=== PATIENT | female | born 1980 | race Caucasian/White ===

== ENCOUNTER 2016-05-14 21:34 | Emergency (ER) | payer BC, MEDICAID ==
[~2016-05-14] VITALS: Ht 165.1 cm; Wt 94.1 kg
[~2016-05-14 21:34] MED LIST: PROM25TA5 PO; ZOFR4TAB3 PO
[2016-05-14 21:37] VITALS: BP 160/85; PULSE 80; RESP 16; TEMP 98.3; O2SAT 96
[2016-05-14] MEDS ORDERED: SODIUM CHLOR 0.9% 1000 ML INJ 1,000 ML IV ONE (22:15)
[2016-05-14 22:20] VITALS: BP 161/108; PULSE 74; RESP 16; O2SAT 96
[2016-05-14] MEDS ORDERED: IBUP800T23 PO (22:27)
[2016-05-14 22:28] VITALS: O2SAT 95
--- NOTE | 2016-05-14 22:28 | PD ---
HPI Chief Complaint: Numbness/Tingling Time Seen by Provider: 22:08 Travel History International Travel<30 days: No Contact w/Intl Traveler<30days: No Traveled to known affect area: No History of Present Illness HPI The patient is 35 year old female who presents to the [facility] emergency department with a history of reportedly being day #9 status post term vaginal delivery. The patient reports that she is both breast and bottle feeding. She reports that was an uncomplicated delivery. She reports that she was discharged after a day. She reports that after discharge she developed congestion, cough, rhinorrhea, right-sided ear pressure. She reports that the congestion has improved, however 2 days ago she began to have a right-sided facial droop with dribbling out of the right side of her mouth when she wouldn' t drink fluids. She reports that she also feels like she has some weakness with closing her right eye. The patient reports having pain behind her right ear that radiates into the right side of her neck. She denies being on any medications . She reports that she did have gestational diabetes. She reports that her lochia is decreasing. She denies having any upper or lower extremity weakness. She denies having any numbness or tingling to her extremities. Her TREE WORKER is Dr. Rankin. The patient has no rashes. The patient denies having any fevers, chest pain, shortness of breath, abdominal pain, vomiting, diarrhea, or urinary symptoms. [facility] Past Medical History Narrative Medical The patient's past medical history is significant for a thyroid disorder status post partial thyroidectomy, however she has not required any subsequent thyroid medication supplementation, history of gestational diabetes. Diabetes: Yes (WHILE ) Patient Takes Glucophage: No Genitourinary: Yes (ovarian cyst) Thyroid Disease: Yes ?: Not LMP: GAVE 9 DAYS AGO Past Surgical History Narrative Surgical The patient's past surgical history is significant for cholecystectomy, appendectomy, partial thyroidectomy. Appendectomy: Yes Cholecystectomy: Yes Gynecologic Surgery: Yes Other Surgery: Yes Social History Alcohol Use: No Tobacco Use: No Substance Use: No Allergies-Medications (Allergen,Severity, Reaction): Coded Allergies: Hydrocodone (Verified Allergy, Severe, 05/14/16) Reported Meds & Prescriptions Reported Meds & Active Scripts Active Valacyclovir (Valacyclovir HCl) 1 Gm Tab 1,000 Mg PO TID Prednisone 20 Mg Tab 20 Mg PO TID 6 Days Reported Ibuprofen 800 Mg Tab 800 Mg PO BID PRN Review of Systems Except as stated in HPI: all other systems reviewed are Neg General / Constitutional: No: Fever Eyes: No: Visual changes HENT: No: Headaches Cardiovascular: No: Chest Pain or Discomfort Respiratory: No: Shortness of Breath Gastrointestinal: No: Abdominal Pain Genitourinary: No: Dysuria Musculoskeletal: No: Pain Skin: No Rash Neurologic: Positive: Focal Abnormalities, Sensory Disturbance, No: Weakness, Change in Mentation, Slurred Speech, Paresthesia Psychiatric: No: Depression Endocrine: No: Polydipsia Hematologic/Lymphatic: No: Easy Bruising Physical Exam Narrative General: The patient is a well-developed well-nourished female in no acute distress. Head and Neck exam: Head is normocephalic atraumatic. Eyes: Pupils are equal round and reactive to light. Nose: Midline septum with pink mucous membranes Mouth: Dentition unremarkable. Moist mucus membranes. Posterior oropharynx is not erythematous. No tonsillar hypertrophy. Uvula midline. Airway patent. Neck: No palpable lymphadenopathy. No nuchal rigidity. No thyromegaly. Cardiovascular: Regular rate and rhythm without murmurs, gallops, or rubs. No pulse deficit to the extremities. Lungs: Clear to auscultation bilaterally. No wheezes, rhonchi, or rales. Abdomen: Soft, without tenderness to palpation in all 4 quadrants of the abdomen. No guarding, rebound, or rigidity. Negative [place] sign. Extremities: No clubbing, cyanosis, or edema. 2+ pulses in all 4 extremities. Back: No spinous process tenderness to palpation. No costovertebral angle tenderness to palpation. Neurologic Exam: Cranial nerves 2-12 were intact on exam. Strength is 5/5 in all 4 extremities. No sensory deficits noted. Skin Exam: No rash noted. Intact skin that is warm and dry. Data Data Last Documented VS Vital Signs Date Time Temp Pulse Resp B/P Pulse Ox O2 Delivery O2 Flow Rate FiO2 05/14/16 22:28 95 Room Air 05/14/16 22:20 74 16 161/108 05/14/16 21:37 98.3 Orders Electrocardiogram (05/14/16 22:09) Complete Blood Count With Diff (05/14/16 22:09) Comprehensive Metabolic Panel (05/14/16 22:09) Prothrombin Time / Inr (Pt) (05/14/16 22:09) Act Partial Throm Time (Ptt) (05/14/16 22:09) Urinalysis - C+S If Indicated (05/14/16 22:09) Magnesium (Mg) (05/14/16 22:09) Thyroid Stimulating Hormone (05/14/16 22:09) Ct Brain W/O Iv Contrast(Rout) (05/14/16 22:09) Iv Access Insert/Monitor (05/14/16 22:09) Ecg Monitoring (05/14/16 22:09) Oximetry (05/14/16 22:09) Ed Urine Pregnancytest Poc (05/14/16 22:09) Cta Neck W Iv Contrast W 3d (05/14/16 ) Sodium Chlor 0.9% 1000 Ml Inj (Ns 1000 M (05/14/16 22:15) Methylprednisolone So Succ Inj (Solumedr (05/14/16 22:45) Iohexol 350 Inj (Omnipaque 350 Inj) (05/14/16 23:47) Labs Laboratory Tests Test 05/14/16 22:25 White Blood Count 6.4 TH/MM3 Red Blood Count 5.40 MIL/MM3 Hemoglobin 15.2 GM/DL Hematocrit 44.1 % Mean Corpuscular Volume 81.6 FL Mean Corpuscular Hemoglobin 28.1 PG Mean Corpuscular Hemoglobin 34.4 % Concent Red Cell Distribution Width 15.9 % Platelet Count 202 TH/MM3 Mean Platelet Volume 8.6 FL Neutrophils (%) (Auto) 57.7 % Lymphocytes (%) (Auto) 33.0 % Monocytes (%) (Auto) 6.4 % Eosinophils (%) (Auto) 1.8 % Basophils (%) (Auto) 1.1 % Neutrophils # (Auto) 3.7 TH/MM3 Lymphocytes # (Auto) 2.1 TH/MM3 Monocytes # (Auto) 0.4 TH/MM3 Eosinophils # (Auto) 0.1 TH/MM3 Basophils # (Auto) 0.1 TH/MM3 CBC Comment DIFF FINAL Differential Comment Prothrombin Time 10.8 SEC Prothromb Time International 1.0 RATIO Ratio Activated Partial 25.1 SEC Thromboplast Time Sodium Level 141 MEQ/L Potassium Level 4.1 MEQ/L Chloride Level 105 MEQ/L Carbon Dioxide Level 28.9 MEQ/L Anion Gap 7 MEQ/L Blood Urea Nitrogen 16 MG/DL Creatinine 0.71 MG/DL Estimat Glomerular Filtration 95 ML/MIN Rate Random Glucose 85 MG/DL Calcium Level 9.5 MG/DL Magnesium Level 1.9 MG/DL Total Bilirubin 0.3 MG/DL Aspartate Amino Transf 25 U/L (AST/SGOT) Alanine Aminotransferase 43 U/L (ALT/SGPT) Alkaline Phosphatase 84 U/L Total Protein 7.3 GM/DL Albumin 3.5 GM/DL Thyroid Stimulating Hormone 1.180 uIU/ML [address] [place] [address] Medical Decision Making Medical Screen Exam Complete: Yes Emergency Medical Condition: Yes Medical Record Reviewed: Yes Differential Diagnosis Intracranial abnormality, versus Chase's palsy Narrative Course During the course of the patients emergency department visit, the patients history, examination, and differential diagnosis were reviewed with the patient. The patient had IV access obtained and blood work sent for analysis. The patient was on a monitor technician with oximetry and blood pressure monitoring. A CT scan of the head, CTA of the neck was ordered. The patient was provided 90 mg of Solu-Medrol IV. The patient was also given Valtrex 1 g by mouth 1, as I suspect that the patient's symptoms are related to a Chase's palsy. The patients laboratory studies were reviewed and remarkable for a CBC that is unremarkable. CMP is unremarkable. TSH 1.18, PT PTT unremarkable. Radiology studies were reviewed and remarkable for a CT scan of the brain that was negative. CTA of the neck shows normal carotid arteries, no other acute abnormality. The patient is noted to have enlarged right thyroid gland containing multiple nodules. Nonemergent thyroid ultrasound is recommended. She was instructed to follow-up with a primary care physician regarding this. The patient's symptoms are most consistent with a Chase's palsy. According to up -to-date it is recommended continuation of prednisone for 7 days. The patient was given her first dose of the steroid today, she will continue prednisone for the next 6 days. The patient will also be continued on Valtrex. The patient was instructed to follow-up with a primary care physician. The patient was given the name of the outpatient referral doctor, Dr. Guaman for follow up. The patient is resting comfortably and feels better, is alert and in no distress. The patients results and examination findings were discussed with the patient. The repeat examination is unremarkable and benign. The history, exam, diagnostic testing, and current condition do not suggest any significant pathology to warrant further testing, continued ED treatment, admission, or surgical evaluation at this point. The vital signs have been stable. The patient does not have uncontrollable pain, intractable vomiting, or other significant symptoms. The patient's condition is stable and appropriate for discharge. The patient will pursue further outpatient evaluation with a primary care physician or other designated or consulting physician as indicated in the discharge instructions. The patient expressed understanding and was agreeable with this plan. Diagnosis Primary Impression: Chase's palsy Additional Impression: Thyroid nodule Referrals: Goldie Guaman MD 2 days Patient Instructions: Chase Palsy (ED), General Instructions Additional Instructions: Incidentally were also noted to have multiple thyroid nodules. It is recommended that he have a follow-up thyroid sonogram for further evaluation with a primary care physician. Med/Other Pt SpecificInfo: Prescription(s) given Scripts Valacyclovir 1 Gm Tab1,000 Mg PO TID #20 TAB Ref 0 Prov:Anum Real MD 05/15/16 Prednisone 20 Mg Tab20 Mg PO TID 6 Days Ref 0 Prov:Anum Real MD 05/15/16 Disposition: 01 DISCHARGE HOME Condition: Stable Anum Real MD May 14, 2016 22:28
[2016-05-14 22:41] LABS: AUTOMATED NEUTROPHIL # 3.7 TH/MM3 (1.8-7.7); BASOPHIL # 0.1 TH/MM3 (0-0.2); BASOPHIL % 1.1 % (0.0-2.0); EOSINOPHIL # 0.1 TH/MM3 (0-0.4); EOSINOPHIL % 1.8 % (0.0-4.0); HEMATOCRIT 44.1 % (35.0-46.0); HEMO FLAGS DIFF FINAL; LYMPHOCYTE # 2.1 TH/MM3 (1.0-4.8); MEAN CELL VOLUME 81.6 FL (80.0-100.0); MEAN CORPUSCULAR HEMOGLOBIN 28.1 PG (27.0-34.0); MEAN CORPUSCULAR HGB CONC 34.4 % (32.0-36.0); MONO % 6.4 % (0.0-8.0); NEUT % 57.7 % (16.0-70.0); PLATELET COUNT 202 TH/MM3 (150-450); RED CELL DISTRIBUTION WIDTH 15.9 % (11.6-17.2); WHITE BLOOD COUNT 6.4 TH/MM3 (4.0-11.0)
[2016-05-14] MEDS ORDERED: methylPREDNISolone SOD SUCC 40 MG/1 ML VIAL IV PUSH ONE (22:45)
[2016-05-14 22:49] LABS: APTT (PATIENT) 25.1 SEC (24.3-30.1); PROTHROMBIN TIME - PATIENT 10.8 SEC (9.8-11.6)
[2016-05-14 23:10] LABS: ALKALINE PHOSPHATASE 84 U/L (45-117); ALT (GPT) 43 U/L (10-53); ANION GAP 7 MEQ/L (5-15); AST (GOT) 25 U/L (15-37); BICARBONATE 28.9 MEQ/L (21.0-32.0); BLOOD UREA NITROGEN 16 MG/DL (7-18); CHLORIDE 105 MEQ/L (98-107); GLOMERULAR FILTRATION RATE 95 ML/MIN (>89); MAGNESIUM 1.9 MG/DL (1.5-2.5); POTASSIUM 4.1 MEQ/L (3.5-5.1); SODIUM (NA) 141 MEQ/L (136-145); TOTAL BILIRUBIN ADULT 0.3 MG/DL (0.2-1.0)
[2016-05-14] MEDS ORDERED: IOHEXOL 350 MG/ML 10 ML VIAL (for RAD DIAG) IV ONE (23:47)
--- NOTE | 2016-05-15 00:13 | RADRPT ---
EXAM DATE/TIME: 05/14/2016 23:44 [facility] COMPARISON: No previous studies available for comparison. INDICATIONS : Right side head and neck pain for two days, 9 days. RADIATION DOSE: 42.32 CTDIvol (mGy) MEDICAL HISTORY : None SURGICAL HISTORY : Cholecystectomy. Appendectomy. ENCOUNTER: Initial ACUITY: 2 days PAIN SCALE: 6/10 LOCATION: Right cranial TECHNIQUE: Multiple contiguous axial images were obtained of the head. Using automated exposure control and adj ustment of the mA and/or kV according to patient size, radiation dose was kept as low as reasonably a chievable to obtain optimal diagnostic quality images. FINDINGS: CEREBRUM: The ventricles are normal for age. No evidence of midline shift, mass lesion, hemorrhage or acute in farction. No extra-axial fluid collections are seen. POSTERIOR FOSSA: The cerebellum and brainstem are intact. The 4th ventricle is midline. The cerebellopontine angle i s unremarkable. EXTRACRANIAL: The visualized portion of the orbits is intact. SKULL: The calvaria is intact. No evidence of skull fracture. CONCLUSION: Normal examination. Kris Manuel MD on May 15, 2016 at 0:10 Board Certified Radiologist. This report was verified electronically.
[2016-05-15] MEDS ORDERED: VALA1TAB PO (00:29)
[2016-05-15] MEDS ORDERED: PRED20 PO (00:29)
[2016-05-15] MEDS ORDERED: valACYclovir HCL 500 MG TAB PO ONE (00:30)
--- NOTE | 2016-05-15 00:33 | RADRPT ---
EXAM DATE/TIME: 05/14/2016 23:44 [facility] COMPARISON: No previous studies available for comparison. INDICATIONS : Right sided head and neck pain for two days, 9 days. IV CONTRAST: 80 cc Omnipaque 350 (iohexol) IV RADIATION DOSE: 27.95 CTDIvol (mGy) MEDICAL HISTORY : None SURGICAL HISTORY : Cholecystectomy. Appendectomy. ENCOUNTER: Initial ACUITY: 2 days PAIN SCALE: 6/10 LOCATION: Right neck TECHNIQUE: Volumetric scanning was performed using a multirow detector CT scanner. The data was post processed with a variety of visualization algorithms including full-volume maximum intensity projection, multip lanar sliding thin-slab reformation, curved-planar reformation, and surface-rendering techniques. Us ing automated exposure control and adjustment of the mA and/or kV according to patient size, radiatio n dose was kept as low as reasonably achievable to obtain optimal diagnostic quality images. FINDINGS: AORTIC ARCH: There is a three-vessel origin of the great vessels from the aorta. No evidence of ostial narrowing. RIGHT CAROTID: The common carotid artery is intact. The carotid bulb has a normal configuration without ulceration o r narrowing. The internal carotid artery lumen is smooth without stenosis. The external carotid bella ry is intact. LEFT CAROTID: The common carotid artery is intact. The carotid bulb has a normal configuration without ulceration or narrowing. The internal carotid artery lumen is smooth without stenosis. The external carotid ar kurt is intact. VERTEBRALS: The vertebral arteries have a symmetric diameter. No stenotic lesions are seen. Enlarged right thyroid gland containing multiple nodules. CONCLUSION: 1. Normal carotid arteries. 2. Enlarged right thyroid gland containing multiple nodules. Nonemergent followup thyroid sonogram re commended. Kris Manuel MD on May 15, 2016 at 0:30 Board Certified Radiologist. This report was verified electronically.
[2016-05-15 00:54] VITALS: BP 134/77
--- NOTE | 2016-05-15 14:14 | EKG ---
Date Performed: 05/14/2016 Time Performed: 22:35:21 PTAGE: 35 years EKG: Sinus rhythm WITH SINUS ARRHYTHMIA NORMAL ECG NO PREVIOUS TRACING DOCTOR: Mario Sidhu Interpretating Date/Time 05/15/2016 14:05:38
== END 2016-05-15 01:17 | disposition home or self-care (01) ==
LOC: NEPC 21:34
DX: G51.0 Bell's palsy (principal); E04.1 Nontoxic single thyroid nodule; I49.8 Other specified cardiac arrhythmias
CPT/HCPCS: 70450; 70498; 80053; 83735; 84443; 84703; 85025; 85610; 85730; 93005; 96361; 96374; 99284; J2920; J7030; Q9967

== ENCOUNTER 2017-07-30 09:38 | Emergency (ER) | payer MEDICAID ==
[~2017-07-30 09:38] MED LIST changes: +IBUP1TAB7 PO; +PRED20 PO; -PROM25TA5 PO; +VALA1TAB PO; -ZOFR4TAB3 PO
[2017-07-30 09:52] VITALS: BP 133/92; PULSE 69; RESP 16; TEMP 98.3; O2SAT 100
[2017-07-30 10:54] VITALS: BP 147/78; PULSE 70; RESP 16; O2SAT 98
[2017-07-30] MEDS ORDERED: KETOROLAC TROMETHAMINE 60 MG/2 ML (IM) VIAL IM ONE (11:15)
[2017-07-30] MEDS ORDERED: traMADol HCL 50 MG TAB PO ONE (11:15)
[2017-07-30] MEDS ORDERED: TRAM50TA PO (11:57)
--- NOTE | 2017-07-30 12:01 | PD ---
HPI Chief Complaint: Headache Time Seen by Provider: 10:35 Travel History International Travel<30 days: No Contact w/Intl Traveler<30days: No Traveled to known affect area: No History of Present Illness HPI The patient was seen and examined in the presence of the nurse. This patient complains of headache. She has a frontal headache. No thunderclap onset. She reports history of migraine. Duration 3 days. No alleviating factors. No exacerbating factors. She's not had any fever or head injury. She is also concerned about her thyroid. She has history of hypothyroidism and is no longer on medication. PFSH Past Medical History Diabetes: Yes (WHILE ) Patient Takes Glucophage: No Genitourinary: Yes (ovarian cyst) Thyroid Disease: Yes ?: Not LMP: 07/26/17 Past Surgical History Appendectomy: Yes Cholecystectomy: Yes Gynecologic Surgery: Yes Other Surgery: Yes Social History Alcohol Use: No Tobacco Use: No Substance Use: No Allergies-Medications (Allergen,Severity, Reaction): Coded Allergies: hydrocodone (Unverified Allergy, Severe, 07/30/17) Reported Meds & Prescriptions Reported Meds & Active Scripts Active Tramadol (Tramadol HCl) 50 Mg Tab 50 Mg PO Q6H PRN Valacyclovir (Valacyclovir HCl) 1 Gm Tab 1,000 Mg PO TID Prednisone 20 Mg Tab 20 Mg PO TID 6 Days Reported Ibuprofen 800 Mg Tab 800 Mg PO BID PRN Review of Systems HENT: Positive: Headaches Cardiovascular: No: Chest Pain or Discomfort Respiratory: No: Cough Gastrointestinal: No: Vomiting Physical Exam Narrative GENERAL: Well-nourished, well-developed patient in no apparent distress. SKIN: Focused skin assessment reveals no rash and nodules. Skin is Warm and dry. HEAD: Atraumatic. Normocephalic. EYES: Pupils equal and round. No scleral icterus. No injection or drainage. ENT: No nasal bleeding or discharge. Mucous membranes pink and moist. Throat clear and TMs normal NECK: Trachea midline. No JVD. No thyroid enlargement or tenderness noted CARDIOVASCULAR: Regular rate and rhythm. No murmur appreciated. RESPIRATORY: No accessory muscle use. Clear to auscultation. Breath sounds equal bilaterally. GASTROINTESTINAL: Abdomen soft, non-tender, nondistended. Hepatic and splenic margins not palpable. MUSCULOSKELETAL: No obvious deformities. No clubbing. No cyanosis. No edema. NEUROLOGICAL: Awake and alert. No obvious cranial nerve deficits. Motor grossly within normal limits. Normal speech. PSYCHIATRIC: Appropriate mood and affect; insight and judgment normal. Data Data Last Documented VS Vital Signs Date Time Temp Pulse Resp B/P (MAP) Pulse Ox O2 Delivery O2 Flow Rate FiO2 07/30/17 10:54 70 16 147/78 (101) 98 Room Air 07/30/17 09:52 98.3 Orders Orders Ketorolac Inj (Toradol Inj) (07/30/17 11:15) Tramadol (Ultram) (07/30/17 11:15) [facility] Medical Decision Making Medical Screen Exam Complete: Yes Emergency Medical Condition: Yes Medical Record Reviewed: Yes Differential Diagnosis Differential diagnosis includes migraine, tension headache, cluster headache, meningitis. Narrative Course I have reviewed the patient's electronic medical record. Patient is neurologically intact. No red flags to suggest emergent imaging is indicated Presentation not consistent with subarachnoid hemorrhage Gave her Toradol injection and a pain pill Prescription was written for pain and nausea medication I offered her TSH evaluation here now but she declines Diagnosis Primary Impression: Headache Qualified Codes: R51 - Headache Additional Instructions: The patient was advised to follow up with their physician and return if they worsen. The patient was warned about potential sedation for the medications they will receive on prescription. Med/Other Pt SpecificInfo: Prescription(s) given Scripts Tramadol (Tramadol) 50 Mg Tab 50 MG PO Q6H Y for PAIN, #10 TAB 0 Refills Prov: Atul Arredondo MD 07/30/17 Disposition: 01 DISCHARGE HOME Condition: Stable Atul Arredondo MD Jul 30, 2017 12:01
[2017-07-30] MEDS ORDERED: ZOFR4TAB PO (12:02)
== END 2017-07-30 12:33 | disposition home or self-care (01) ==
LOC: NEPD 09:38
DX: R51 Headache (principal); E03.9 Hypothyroidism, unspecified; E11.9 Type 2 diabetes mellitus without complications; E07.9 Disorder of thyroid, unspecified; Z88.5 Allergy status to narcotic agent; Z79.899 Other long term (current) drug therapy
CPT/HCPCS: 96372; 99283; J1885